=== PATIENT | female | born 1955 | race Caucasian/White ===

== ENCOUNTER → 2024-12-29 10:06 | Outpatient (REF) | payer MEDICARE, BC, SELFPAY | LOC: HWRAD 10:06 | PROVIDERS: ATTENDING PHYSICIAN Internal Medicine | DX: I42.9 Cardiomyopathy, unspecified (principal); M81.0 Age-related osteoporosis without current pathological fracture | CPT/HCPCS: 77080; 93005; 93306 ==

== ENCOUNTER → 2025-04-13 08:10 | Outpatient (REF) | payer MEDICARE, BC, SELFPAY | LOC: PAVMRI 08:10 | PROVIDERS: ATTENDING PHYSICIAN Internal Medicine Cardiovascular Disease; FAMILY PHYSICIAN Internal Medicine | DX: I42.2 Other hypertrophic cardiomyopathy (principal); I49.3 Ventricular premature depolarization | CPT/HCPCS: 75561; 75565; A9575 ==

== ENCOUNTER → 2025-10-15 10:57 | Outpatient (REF) | payer MEDICARE, BC, SELFPAY | LOC: HWWDC 10:57 | PROVIDERS: ATTENDING PHYSICIAN Obstetrics & Gynecology Gynecology; FAMILY PHYSICIAN Internal Medicine | DX: Z12.31 Encounter for screening mammogram for malignant neoplasm of breast (principal) | CPT/HCPCS: 77063; 77067 ==